=== PATIENT | male | born 1955 | race Caucasian/White ===

== ENCOUNTER → 2018-08-19 | Outpatient (CLI) | payer OTHER ==
[~2018-08-19] MED LIST: PERFLUTREN PROTEIN-A MICROSPHR 0.22 MG/ML 3 ML VIAL. IV ONE
--- NOTE | 2018-08-19 11:38 | PCVCIMAG ---
APPROVED REPORT Study performed: 08/19/2018 10:20:45 EXAM: Comprehensive 2D, Doppler, and color-flow Echocardiogram with contrast Patient Location: Echo lab Status: routine BSA: 2.23 HR: 85 bpmBP: 140/78 mmHg Rhythm: Atrial Fibrillation Other Information Study Quality: Fair Technically limited study due to body habitus. Risk Factors: Cardiac Risk Factors: HTN, Hyperlipidemia, DM Indications CAD Cardiomyopathy S/P CABG x 6 (2014) Echo Enhancing Agent Indication: Endocardial border delineation Agent(s) / Amount(s) Used: BackTrack cc 2D Dimensions IVSd: 10.89 (7-11mm)LVOT Diam: 19.00 (18-24mm) LVDd: 58.40 mm PWd: 10.99 (7-11mm)Ascending Ao: 35.28 (22-36mm) LVDs: 41.98 (25-40mm) Left Atrium: 48.26 (27-40mm) Aortic Root: 33.01 mm Volumes Left Atrial Volume (Systole) Single Plane 4CH: 84.57 mLSingle Plane 2CH: 77.81 mL LA ESV Index: 41.00 mL/m2 Aortic Valve AoV Peak Clark.: 1.89 m/s AO Peak Gr.: 14.39 mmHgLVOT Max P.66 mmHg LVOT Max V: 0.96 m/s GERHARD Vmax: 1.66 cm2 Pulmonary Valve PV Peak Clark.: 0.97 m/sPV Peak Gr.: 3.74 mmHg Tricuspid Valve TR Peak Clark.: 2.36 m/sRAP Estimate: 7.00 mmHg TR Peak Gr.: 23.47 mmHg PA Pressure: 31.00 mmHg Left Ventricle Left ventricle is mildly dilated. Borderline concentric left ventricular hypertrophy. Left ventricular systolic function is mildly decreased. Hypokinesis base of septum and inferior hernandez. LVEF is 50%. This study is not technically sufficient to allow evaluation of the LV diastolic function due to atrial fibrillation. Right Ventricle The right ventricle is normal size. The right ventricular systolic function is normal. Atria Left atrium is mildly dilated. Right atrium is mildly dilated. Aortic Valve The aortic valve is mildly calcified, trileaflet. Mild aortic regurgitation. There is no aortic valvular stenosis. Mitral Valve Mild mitral annular calcification. Mild mitral regurgitation. No evidence of mitral valve stenosis. Tricuspid Valve The tricuspid valve is normal in structure. Mild tricuspid regurgitation. Pulmonary artery pressure is 30 mmHg. Pulmonic Valve The pulmonary valve is normal in structure. Mild pulmonic regurgitation. Great Vessels The aortic root is normal in size. IVC is normal in size and collapses >50% with inspiration. Pericardium There is no pericardial effusion. <Conclusion> Left ventricular systolic function is mildly decreased. Hypokinesis base of septum and inferior hernandez. LVEF is 50%. Both atria are mildly dilated. The aortic valve is mildly calcified, trileaflet. Mild aortic regurgitation, no stenosis. Mild mitral annular calcification. Mild mitral regurgitation. Mild tricuspid regurgitation. Pulmonary artery pressure is 30 mmHg. There is no pericardial effusion.
== END | disposition home or self-care (01) ==
LOC: PCVCIMAG 09:57
PROVIDERS: ATTEND Internal Medicine
DX: I08.3 Combined rheumatic disorders of mitral, aortic and tricuspid valves (principal); I48.2 Chronic atrial fibrillation; E11.9 Type 2 diabetes mellitus without complications; I25.5 Ischemic cardiomyopathy; I25.10 Atherosclerotic heart disease of native coronary artery without angina pectoris; E78.5 Hyperlipidemia, unspecified; Z95.1 Presence of aortocoronary bypass graft
CPT/HCPCS: C8929; Q9956; 80061; 93005; G0463

== ENCOUNTER → 2019-07-21 | Outpatient (CLI) | payer OTHER | END | disposition home or self-care (01) | LOC: PCVCCLINIC 09:30 | PROVIDERS: ATTEND Internal Medicine | DX: I25.10 Atherosclerotic heart disease of native coronary artery without angina pectoris (principal); I25.5 Ischemic cardiomyopathy; I48.21 Permanent atrial fibrillation; E78.5 Hyperlipidemia, unspecified; I10 Essential (primary) hypertension; E11.9 Type 2 diabetes mellitus without complications; R06.09 Other forms of dyspnea; R94.31 Abnormal electrocardiogram [ECG] [EKG]; Z79.01 Long term (current) use of anticoagulants; Z79.899 Other long term (current) drug therapy; Z79.4 Long term (current) use of insulin | CPT/HCPCS: 36415; 80061; 93005; G0463 ==